=== PATIENT | male | born 1995 | race Caucasian/White ===

== ENCOUNTER 2019-05-18 14:58 | Emergency (ER) | payer MEDICAID, OTHER ==
--- NOTE | 2019-05-18 15:02 | NUR ---
Attempted to traige, pt was not found in ER waiting room or outside ER.
== END 2019-05-18 15:10 | disposition left against medical advice (07) ==
LOC: ER 14:58
DX: Z53.21 Procedure and treatment not carried out due to patient leaving prior to being seen by health care provider (principal)